=== PATIENT | female | born 1990 | race African-American/Black ===

== ENCOUNTER 2018-05-03 03:49 | Inpatient (IN) ==
[2018-05-03] MEDS ORDERED: BUTORPHANOL 2 MG/ML VIAL IV PRN (03:57)
[2018-05-03] MEDS ORDERED: ONDANSETRON 4 MG/2 ML VIAL IV PRN (03:57)
[2018-05-03] MEDS ORDERED: MEPERIDINE 50 MG/1 ML VIAL IV PRN (03:57)
[2018-05-03] MEDS: LACTATED RINGERS 1,000 ML IV SCH ×2 (04:17→08:33)
[2018-05-03 04:30] LABS: Basophils % 0.2 % (0.0-0.8); Eosinophils # 0.1 10*3/uL (0.0-0.87); Eosinophils % 0.5 % (0.00-10.9); Hematocrit 32.7 VOL% (35.7-47.0); Hemoglobin 10.4 GM/DL (12.0-16.0); Immature Granulocytes % 0.2 %; Immature Granulocytes Absolute 0.03 #; Lymphocytes # 2.1 10*3/uL (1.4-4.0); Lymphocytes % 17.1 % (21.3-54.2); Mean Corpuscular HGB Conc 31.8 GM/DL (32-36); Mean Corpuscular Hemoglobin 27 PG (27-34); Mean Corpuscular Volume 85.4 FL (87-102); Mean Platelet Volume 9.4 FL (9.6-12.0); Monocytes # 0.8 10*3/uL (0.11-0.8); Monocytes % 6.7 % (1.7-12.7); Neutrophils # 9.2 10*3/uL (1.4-7.4); Neutrophils % 75.3 % (38.7-73.9); Platelet Count 376 T/CUMM (130-400); Red Blood Count 3.83 MC/CUMM (3.8-5.5); Red Cell Distribution Width 13.6 % (9.3-17.3); White Blood Count 12.2 T/CUMM (4-12)
[2018-05-03] MEDS ORDERED: FAMOTIDINE 20 MG/2 ML VIAL IV ONE (04:39)
[2018-05-03] MEDS ORDERED: CITRIC ACID/SODIUM CITRATE 30 ML UDCUP PO ONE (04:39)
[2018-05-03 04:46] LABS: INR 0.9; PT Patient Result 9.4 SECS; Partial Thromboplastin Time 26.6 SECS (0-40)
[2018-05-03] MEDS ORDERED: fentaNYL 2 MCG/ROPIV 0.2% EPID 100 ML EPIDURAL SCH (05:00)
[2018-05-03 05:05] LABS: Alanine Aminotransferase 12 U/L (13-56); Albumin 2.5 G/DL (3.4-5.0); Alkaline Phosphatase 196 U/L (45-117); Aspartate Amino Transferase 8 U/L (0-37); Bilirubin,Total < 0.39 MG/DL (0.2-1.0); Blood Urea Nitrogen 7 MG/DL (7-18); Calcium 8.4 MG/DL (8.5-10.1); Glucose 89 MG/DL (74-106); Potassium 3.6 MMOL/L (3.5-5.1); Sodium 136 MMOL/L (136-145); Total Protein 6.9 G/DL (6.4-8.3)
[2018-05-03] MEDS: LABETALOL 200 MG TABLET PO SCH ×2 (05:11→12:48)
[2018-05-03] MEDS ORDERED: OXYTOCIN/LR 20 UNIT/1,000 ML BAG IV SCH (05:30)
[2018-05-03] MEDS ORDERED: OXYTOCIN 40 UNIT in LACTATED RINGERS 1,000 ML IV ONE (09:41)
[2018-05-03 09:50] LABS: Apearance,Urine CLEAR (Clear); Bilirubin,Urine Negative (Negative); Blood, Urine Negative (Negative); Glucose,Urine (UA) Negative (Negative); Ketones,Urine Negative (Negative); Mucus,Urine Occasional /LPF (Occasional); Nitrite,Urine Negative (Negative); Protein,Urine 30 MG/DL; RBC,Urine <1 /HPF (0-4); Squamous Epithelial Cell,Urine Occasional /HPF (0-10); Urine Color Yellow (Yellow); Urine Specific Gravity 1.014 (1.001-1.035); Urine Urobilinogen < 2.0 EU/DL (0.2-1.0); WBC,Urine 1 /HPF (0-6)
[2018-05-03] MEDS ORDERED: LIDOCAINE 1% 50 ML VIAL ONE (12:28)
[2018-05-03] MEDS ORDERED: miSOPROStol 200 MCG TABLET ONE (12:28)
[2018-05-03 14:01] LABS: Cord Venous Blood HCO3 20.6 MMOL/L; Cord Venous Blood PCO2 48.8 MMHG; Cord Venous Blood PO2 20.6
[2018-05-03 14:03] LABS: Cord Arterial Blood HCO3 19.2 MMOL/L
[2018-05-03] MEDS ORDERED: IBUPROFEN 800 MG TABLET PO ONE (16:09)
[2018-05-03] MEDS ORDERED: BISACODYL 10 MG SUPP RECTAL PRN (17:14)
[2018-05-03] MEDS ORDERED: DIPH/TET/ACEL PERT BOOSTER VACCINE 0.5 ML VIAL IM ONE (17:14)
[2018-05-03] MEDS ORDERED: HYDROCORTISONE 2.5% RECTAL CREAM 30 GM TUBE TOP PRN (17:14)
[2018-05-03] MEDS ORDERED: MEASLES/MUMPS/RUBELLA VACCINE 0.5 ML VIAL SUBCUT ONE (17:14)
[2018-05-03] MEDS ORDERED: ACETAMINOPHEN 325 MG TABLET PO PRN (17:14)
[2018-05-03] MEDS ORDERED: RHO(D) IMMUNE GLOBULIN 300 MCG SYRINGE IM ONE (17:14)
[2018-05-03] MEDS ORDERED: ACETAMINOPHEN/CODEINE 300-30 MG TABLET PO PRN (17:14)
[2018-05-03] MEDS ORDERED: oxyCODONE/ACETAMINOPHEN 5-325 MG TABLET PO PRN ×2 (17:14)
[2018-05-03] MEDS ORDERED: LANOLIN 50% CREAM 0.3 OZ TUBE TOP PRN (17:14)
[2018-05-03] MEDS ORDERED: BENZOCAINE 20%/MENTHOL 0.5% SPRAY 56 GM CAN TOP PRN (17:14)
[2018-05-03] MEDS ORDERED: WITCH HAZEL PADS 100/JAR TOP PRN (17:14)
[2018-05-03] MEDS: DOCUSATE SODIUM 100 MG CAPSULE PO SCH (21:19)
[2018-05-03] MEDS: IBUPROFEN 800 MG TABLET PO PRN (23:30)
[2018-05-04 05:18] LABS: Basophils # 0.1 10*3/uL (0.0-0.2); Basophils % 0.3 % (0.0-0.8); Eosinophils # 0.1 10*3/uL (0.0-0.87); Eosinophils % 0.7 % (0.00-10.9); Hemoglobin 10.9 GM/DL (12.0-16.0); Immature Granulocytes % 0.3 %; Immature Granulocytes Absolute 0.04 #; Lymphocytes # 3.7 10*3/uL (1.4-4.0); Lymphocytes % 24.1 % (21.3-54.2); Mean Corpuscular HGB Conc 31.1 GM/DL (32-36); Mean Corpuscular Hemoglobin 27 PG (27-34); Mean Platelet Volume 9.3 FL (9.6-12.0); Monocytes # 1.2 10*3/uL (0.11-0.8); Monocytes % 7.5 % (1.7-12.7); Neutrophils # 10.4 10*3/uL (1.4-7.4); Neutrophils % 67.1 % (38.7-73.9); Platelet Count 374 T/CUMM (130-400); Red Blood Count 4.07 MC/CUMM (3.8-5.5); Red Cell Distribution Width 13.7 % (9.3-17.3); White Blood Count 15.4 T/CUMM (4-12)
[2018-05-04] MEDS: IBUPROFEN 800 MG TABLET PO PRN ×2 (05:56→19:33)
[2018-05-04] MEDS: DOCUSATE SODIUM 100 MG CAPSULE PO SCH ×2 (08:53→19:33)
[2018-05-04] MEDS ORDERED: MAGNESIUM HYDROXIDE SUSP 30 ML UDCUP PO PRN (13:42)
[2018-05-05] MEDS: DOCUSATE SODIUM 100 MG CAPSULE PO SCH ×2 (00:42→09:31)
[2018-05-05 07:29] VITALS: BP 147/73
[2018-05-05] MEDS: IBUPROFEN 800 MG TABLET PO PRN (09:31)
== END 2018-05-05 13:25 | disposition home or self-care (01) | DRG 560 ==
LOC: N.LDOUT 03:49 → N.LD 03:51 → N.OB 17:48
PROVIDERS: ADMIT Obstetrics & Gynecology; ATTEND Obstetrics & Gynecology